=== PATIENT | female | born 1980 | race Caucasian/White ===

== ENCOUNTER → 2016-09-07 | Outpatient (CLI) | payer OTHER | LOC: KOH-I 09:30 | DX: M54.5 Low back pain (principal); M51.36 Other intervertebral disc degeneration, lumbar region; M51.37 Other intervertebral disc degeneration, lumbosacral region; M51.27 Other intervertebral disc displacement, lumbosacral region; J44.9 Chronic obstructive pulmonary disease, unspecified; M79.7 Fibromyalgia; G89.29 Other chronic pain; G47.00 Insomnia, unspecified | CPT/HCPCS: 72148 ==

== ENCOUNTER 2016-11-01 11:49 | Emergency (ER) | payer OTHER | END 2016-11-01 14:10 | disposition home or self-care (01) | LOC: ER1 11:49 | DX: J44.1 Chronic obstructive pulmonary disease with (acute) exacerbation (principal); J40 Bronchitis, not specified as acute or chronic; F17.210 Nicotine dependence, cigarettes, uncomplicated; K21.9 Gastro-esophageal reflux disease without esophagitis; Z88.1 Allergy status to other antibiotic agents; Z88.0 Allergy status to penicillin; Z79.899 Other long term (current) drug therapy | CPT/HCPCS: 71020; 87081; 87880; 94664; 99283 ==

== ENCOUNTER 2022-01-06 18:02 | Emergency (ER) | payer OTHER ==
[~2022-01-06 18:02] MED LIST: ADVAIR 100-501 EACH INH; COLACE100 MG PO; ELAVIL 10 MG TA10 MG PO; GABAPENTIN600 MG PO; POTASSIUM CHLO10 MEQ PO; PROTONIX40 MG PO; SINGULAIR10 MG PO; SUBOXONE 8 MG-1 EACH SL; TYLENOL WITH C1 EACH PO; ZANAFLEX4 MG PO; ZANTAC 150 MG150 MG PO
[2022-01-06] MEDS ORDERED: IBUPROFEN600 MG PO (20:08)
[2022-01-06] MEDS ORDERED: CYCLOBENZAPRINE10 MG PO (20:20)
== END 2022-01-06 20:37 | disposition home or self-care (01) ==
LOC: ER1 18:02
DX: S20.20XA Contusion of thorax, unspecified, initial encounter (principal); S00.81XA Abrasion of other part of head, initial encounter; J44.9 Chronic obstructive pulmonary disease, unspecified; F17.210 Nicotine dependence, cigarettes, uncomplicated; Z88.0 Allergy status to penicillin; Y04.0XXA Assault by unarmed brawl or fight, initial encounter
CPT/HCPCS: 71046; 96372; 99283; J1885

== ENCOUNTER 2022-03-22 00:42 | Emergency (ER) | payer OTHER ==
[~2022-03-22 00:42] MED LIST changes: +CYCLOBENZAPRINE10 MG PO; +IBUPROFEN600 MG PO
== END 2022-03-22 03:35 | disposition home or self-care (01) ==
LOC: ER1 00:42
DX: S01.81XA Laceration without foreign body of other part of head, initial encounter (principal); Z23 Encounter for immunization; W22.8XXA Striking against or struck by other objects, initial encounter
CPT/HCPCS: 70150; 90471; 90714; 99282